=== PATIENT | female | born 1985 | race African-American/Black ===

== ENCOUNTER 2020-12-28 06:02 | Day surgery (SDC) | payer OTHER ==
[~2020-12-28] VITALS: Ht 160 cm; Wt 75.0 kg
[~2020-12-28 06:02] MED LIST: HYDROmorphone 2 MG/ML VIAL IVP PRN; IV RINGERS,LACTATED 1000ML 1,000 ML IV SCH; MORPHINE SULFATE 2 MG/ML INJ. IVP PRN; PROCHLORPERAZINE 10 MG/2 ML VIAL. IVP PRN; ceFAZolin SODIUM IV Push 1 GM VIAL. IVP PRN; fentaNYL PF VIAL 100 MCG/2 ML VIAL IVP PRN
[2020-12-28 06:27] VITALS: BP 120/57
[2020-12-28] MEDS ORDERED: fentaNYL PF VIAL 100 MCG/2 ML VIAL ONE ×2 (07:16→08:15)
[2020-12-28] MEDS ORDERED: MIDAZOLAM HCL/PF 2 MG/2 ML VIAL. ONE (07:17)
[2020-12-28] MEDS ORDERED: ONDANSETRON PF 4 MG/2 ML VIAL. ONE (07:20)
[2020-12-28] MEDS ORDERED: LIDOCAINE 2% PF 5 ML VIAL. ONE (07:20)
[2020-12-28] MEDS ORDERED: DEXAMETHASONE SOD PHOS 4 MG/ML VIAL ONE (07:20)
[2020-12-28] MEDS ORDERED: PROPOFOL 10 MG/ML (20ML) VIAL. IV ONE (07:20)
[2020-12-28] MEDS ORDERED: ONABOTULINUMTOXINA 100 UNIT VIAL. ID ONE ×2 (07:30→08:15)
[2020-12-28] MEDS ORDERED: 0.9 % SODIUM CHLORIDE 20 ML VIAL. IJ ONE ×2 (07:46)
--- NOTE | 2020-12-28 08:44 | PDOC ---
BRIEF OPERATIVE NOTE Date: Dec 28, 2020 Pre-Op Diagnosis overactive bladder Post-Op Diagnosis same Procedure Performed bladder botox and cystoscopy Surgeon Dr. Perry Anesthesiologist Dr. Randall Anesthesia Type: General Blood Loss 0 IV Fluid see anesthesia Urine Output n/a Specimens Obtained none Findings normal bladder Complications none Operative Note 100u botox in 10cc injectable saline [id number] ANN MARIE PERRY MD Dec 28, 2020 08:44
[2020-12-28] MEDS ORDERED: diphenhydrAMINE HCL 25 MG CAPSULE PO PRN (08:45)
[2020-12-28] MEDS ORDERED: diphenhydrAMINE 50 MG/ML VIAL IV PRN (08:45)
[2020-12-28] MEDS ORDERED: HYDROcodone/APAP 5/325MG 1 TAB TABLET PO PRN (08:45)
[2020-12-28] MEDS ORDERED: NALOXONE 0.4 MG/ML VIAL. IV PRN (08:45)
[2020-12-28] MEDS ORDERED: MAG HYDROX/ALUMINUM HYD/SIMETH 30 ML ORAL.SUSP PO PRN (08:45)
[2020-12-28] MEDS ORDERED: SIMETHICONE 80 MG TAB.CHEW PO PRN (08:45)
[2020-12-28] MEDS ORDERED: 0.9 % SODIUM CHLORIDE 10 ML DISP.SYRIN. IV PRN (08:45)
[2020-12-28] MEDS ORDERED: CALCIUM CARBONATE 500 MG TAB.CHEW PO PRN (08:45)
--- NOTE | 2020-12-28 08:58 | OP ---
DATE OF SURGERY: 12/28/2020 PREOPERATIVE DIAGNOSIS: Overactive bladder. POSTOPERATIVE DIAGNOSIS: Overactive bladder. PROCEDURE: Injection of bladder Botox and cystoscopy. SURGEON: Angelita Mcmahon MD GLAZE MIXER: OR personnel. ANESTHESIOLOGIST: Linden Randall MD ANESTHESIA: General. BLOOD LOSS: Zero. IV FLUIDS: Please see anesthesia records. URINE OUTPUT: Not applicable. SPECIMENS: None. COMPLICATIONS: None. FINDINGS: Normal bladder. DESCRIPTION OF PROCEDURE: This patient was taken to the operating room where anesthesia was placed. The patient was placed in dorsal lithotomy position in Parth stirrups. The patient was prepped externally in normal sterile fashion. Timeout was performed. Once everyone agreed on the patient, site and procedure, the antibiotics, the procedure was initiated. A 100 units of Botox had previously been mixed with 10 mL of injectable saline. Once it was mixed, it was drawn up into a 10-mL syringe. The [place] [employer] needle, the flexible was used and set at 3. The cystoscope was placed in with a normal bladder bubble. Both ureteral openings were seen and no significant abnormalities. So through the operating channel of the cystoscope, twenty 0.5 mL injections of this dilute solution of the Botox was used and then on the 21st injection, it was a 1 mL injectable saline flush just to empty the catheter. The patient tolerated the procedure well. The cystoscope was removed. There was no active bleeding and the procedure was ended. All counts were correct x 2 by OR personnel. The patient was awakened from anesthesia and brought to recovery room in stable condition. DIANA DR: Isabel TID: [id number]
[2020-12-28 09:00] VITALS: BP 140/84
== END 2020-12-28 09:20 | disposition home or self-care (01) ==
LOC: SURG 06:02
PROVIDERS: ATTEND Obstetrics & Gynecology
DX: N32.81 Overactive bladder (principal); Z79.899 Other long term (current) drug therapy; Z98.890 Other specified postprocedural states
CPT/HCPCS: 52287; 81025; A4930; J0585; J0690; J1100; J2250; J2405; J2704; J3010